=== PATIENT | male | born 1970 | race Caucasian/White ===

== ENCOUNTER 2016-11-15 15:34 | Emergency (ER) | payer OTHER ==
[~2016-11-15] VITALS: Ht 177.8 cm; Wt 64.0 kg
[2016-11-15 15:38] VITALS: TEMP 37.4; Ht 177.8 cm; Wt 64.0 kg
[2016-11-15 16:29] LABS: BASO % 0.7 %; BASO ABS # 0.07 K/uL (0-0.2); COMPLETE YES; EOS % 0.7 %; HEMATOCRIT 39.2 % (42-52); IG% 0.2 %; LYMPH ABS # 1.82 K/uL (1.2-3.4); MEAN CELL VOLUME 88.1 fL (80-100); MEAN CORPUSCULAR HEMOGLOBIN 29.9 pg (25-34); MEAN CORPUSCULAR HGB CONC 33.9 g/dl (32-36); MEAN PLATELET VOLUME 8.6 fL (7.4-10.4); MONO % 11.2 %; NEUT % 70.2 %; PLATELET COUNT 203 K/uL (130-400); RED BLOOD COUNT 4.45 M/uL (4.7-6.1); WHITE BLOOD COUNT 10.73 K/uL (4.8-10.8)
--- NOTE | 2016-11-15 16:34 | DIAGNOSTIC IMAGING REPORT ---
RIGHT ANKLE 3 VIEWS HISTORY: pain, swelling Right COMPARISON: None. FINDINGS: Small avulsion fracture at the distal tip of the right fibula. Lateral soft tissue swelling within the ankle. No radiopaque foreign bodies. IMPRESSION: Small nondisplaced avulsion fracture at the distal tip of the right fibula. Electronically signed by: Davy Tyler M.D. 11/15/2016 4:33 PM Dictated Date/Time: 11/15/2016 4:32 PM
[2016-11-15] MEDS ORDERED: CEFTRIAXONE SOD INJ 1 GM ADDVIAL IV STA (16:39)
[2016-11-15 16:44] LABS: BUN/CREATININE RATIO 10.3 (10-20); CALCIUM 8.6 mg/dl (8.5-10.1); POTASSIUM 4.2 mmol/L (3.5-5.1)
[2016-11-15] MEDS ORDERED: SULFAMETHOXAZOLE/TRIMETHOPRIM DS 800/160MG TAB PO ONE (16:45)
--- NOTE | 2016-11-15 16:52 | DIAGNOSTIC IMAGING REPORT ---
Venous Doppler right leg RIGHT VENOUS DOPP LOWER EXT UNILAT CLINICAL HISTORY: swelling, erythema Right TECHNIQUE: Is Doppler COMPARISON STUDY: None FINDINGS: Normal study IMPRESSION: Normal study Electronically signed by: Navdeep Naylor M.D. 11/15/2016 4:51 PM Dictated Date/Time: 11/15/2016 4:50 PM
[2016-11-15] MEDS ORDERED: CEPH500C PO (17:46)
[2016-11-15] MEDS ORDERED: SULF800T23 PO (17:46)
--- NOTE | 2016-11-15 17:46 | EMERGENCY ROOM VISIT NOTE ---
History Report prepared by Liv: Maritza Kam Under the Supervision of: Dr. Lupe Mejia D.O. First contact with patient: 15:53 Chief Complaint: ANKLE PAIN Stated Complaint: SWELLING TO RIGHT ANKLE-WC History of Present Illness The patient is a 46 year old male who presents to the Emergency Room with complaints of persistent right ankle pain starting yesterday. He describes his pain as throbbing. He reports redness and swelling. This morning he was unable to ambulate because of the pain. He denies any nausea or abdominal pain. He denies any trauma or injury. He believes he might have an infection. The patient works with chemicals and often gets skin irritation. Several years ago, he had some similar redness and swelling which cleared up after antibiotics. He notes that he popped a pimple on his ankle several days ago which might have gone into his skin. He denies any history of MRSA or diabetes. He denies any history of kidney problems. He admits to smoking. Source of History: patient Onset: yesterday Position: ankle (right) Quality: other (throbbing) Timing: other (persistent) Associated Symptoms: No nausea, No abdominal pain Note: Pt reports right ankle redness and swelling. Review of Systems See HPI for pertinent positives & negatives. A total of 10 systems reviewed and were otherwise negative. Past Medical & Surgical Medical Problems: (1) Cellulitis of ankle (2) No Known Active Medical Problems Family History No pertinent family history stated. Social History Smoking Status: Current Every Day Smoker Marital Status: single Occupation Status: employed Current/Historical Medications Scheduled Cephalexin Monohydrate (Keflex), 500 MG PO QID Sulfa/Trimethoprim (Bactrim Ds 800MG/160MG), 1 TAB PO BID Allergies Coded Allergies: No Known Allergies (Unverified , 11/15/16) Physical Exam Vital Signs Date Time Temp Pulse Resp B/P (MAP) Pulse Ox O2 Delivery O2 Flow Rate FiO2 11/15/16 18:00 74 16 98/61 100 Room Air 11/15/16 17:01 83 16 94/63 100 Room Air 11/15/16 15:38 37.4 82 16 110/75 95 Physical Exam GENERAL: alert, well appearing, well nourished, no distress, non-toxic EYE EXAM: normal conjunctiva, PERRL and EOM's grossly intact OROPHARYNX: poor dentition, no exudate, no erythema, lips, buccal mucosa, and tongue normal and mucous membranes are moist NECK: supple, no nuchal rigidity, no adenopathy, non-tender LUNGS: Clear to auscultation. Normal chest wall mechanics HEART: no murmurs, S1 normal and S2 normal ABDOMEN: abdomen soft, non-tender, normo-active bowel sounds, no masses, no rebound or guarding. BACK: Back is symmetrical on inspection and there is no deformity, no midline tenderness, no CVA tenderness. SKIN: no rashes and no bruising UPPER EXTREMITIES: upper extremities are grossly normal. LOWER EXTREMITIES: 2+ right lower extremity edema, erythema to the ankle, dorsum of right foot, and ascending proximally, multiple areas of excoriation around the ankle, no ecchymosis, no crepitus, no ulcer, no drainage, no vesicle. NEURO EXAM: Normal sensorium, cranial nerves II-XII grossly intact, normal speech, no gross weakness of arms, no gross weakness of legs. Medical Decision & Procedures ER Provider Diagnostic Interpretation: Xray results have been interpreted by the radiologist and me. Radiology results have been interpreted by the radiologist and reviewed by me. RIGHT ANKLE 3 VIEWS HISTORY: pain, swelling Right COMPARISON: None. FINDINGS: Small avulsion fracture at the distal tip of the right fibula. Lateral soft tissue swelling within the ankle. No radiopaque foreign bodies. IMPRESSION: Small nondisplaced avulsion fracture at the distal tip of the right fibula. Electronically signed by: Davy Tyler M.D. 11/15/2016 4:33 PM Dictated Date/Time: 11/15/2016 4:32 PM Venous Doppler right leg RIGHT VENOUS DOPP LOWER EXT UNILAT CLINICAL HISTORY: swelling, erythema Right TECHNIQUE: Is Doppler COMPARISON STUDY: None FINDINGS: Normal study IMPRESSION: Normal study Electronically signed by: Navdeep Naylor M.D. 11/15/2016 4:51 PM Dictated Date/Time: 11/15/2016 4:50 PM Laboratory Results 11/15/16 16:20 Red Blood Count 4.45, Mean Corpuscular Volume 88.1, Mean Corpuscular Hemoglobin 29.9, Mean Corpuscular Hemoglobin Concent 33.9, Mean Platelet Volume 8.6, Neutrophils (%) (Auto) 70.2, Lymphocytes (%) (Auto) 17.0, Monocytes (%) (Auto) 11.2, Eosinophils (%) (Auto) 0.7, Basophils (%) (Auto) 0.7, Neutrophils # (Auto ) 7.55, Lymphocytes # (Auto) 1.82, Monocytes # (Auto) 1.20, Eosinophils # (Auto ) 0.07, Basophils # (Auto) 0.07 11/15/16 16:20 Test 11/15/16 16:20 White Blood Count 10.73 K/uL (4.8-10.8) Red Blood Count 4.45 M/uL (4.7-6.1) Hemoglobin 13.3 g/dL (14.0-18.0) Hematocrit 39.2 % (42-52) Mean Corpuscular Volume 88.1 fL (80-100) Mean Corpuscular Hemoglobin 29.9 pg (25-34) Mean Corpuscular Hemoglobin Concent 33.9 g/dl (32-36) Platelet Count 203 K/uL (130-400) Mean Platelet Volume 8.6 fL (7.4-10.4) Neutrophils (%) (Auto) 70.2 % Lymphocytes (%) (Auto) 17.0 % Monocytes (%) (Auto) 11.2 % Eosinophils (%) (Auto) 0.7 % Basophils (%) (Auto) 0.7 % Neutrophils # (Auto) 7.55 K/uL (1.4-6.5) Lymphocytes # (Auto) 1.82 K/uL (1.2-3.4) Monocytes # (Auto) 1.20 K/uL (0.11-0.59) Eosinophils # (Auto) 0.07 K/uL (0-0.5) Basophils # (Auto) 0.07 K/uL (0-0.2) RDW Standard Deviation 39.9 fL (36.4-46.3) RDW Coefficient of Variation 12.3 % (11.5-14.5) Immature Granulocyte % (Auto) 0.2 % Immature Granulocyte # (Auto) 0.02 K/uL (0.00-0.02) Anion Gap 5.0 mmol/L (3-11) Est Creatinine Clear Calc Drug Dose 82.7 ml/min Estimated GFR () 103.4 Estimated GFR (Non- 89.2 BUN/Creatinine Ratio 10.3 (10-20) Calcium Level 8.6 mg/dl (8.5-10.1) Laboratory results per my review. Medications Administered Medications (Trade) Dose Ordered Sig/Selam Route Start Time Stop Time Status Last Admin Dose Admin Ceftriaxone Sodium (Rocephin Inj) 1 gm NOW STAT IV 11/15/16 16:39 11/15/16 16:41 DC 11/15/16 17:09 1 GM Trimethoprim/ Sulfamethoxazole (Septra Ds 800/ 160MG Tab) 1 tab NOW ONCE PO 11/15/16 16:45 11/15/16 16:46 DC 11/15/16 17:09 1 TAB ED Course 1555: The patient was evaluated in room C11B. A complete history and physical exam was performed. 1639: Rocephin Inj 1 gm IV. 1645: Trimethoprim/Sulfamethoxazole 1 tab PO. 1741: Upon reevaluation, the patient does not have any increased pain. I discussed the findings and the treatment plan with the patient. He verbalizes agreement and understanding. He was discharged home. Medical Decision Differential diagnosis: Etiologies such as cellulitis, abscess, septic arthritis, osteomyelitis, MRSA infection, DVT, necrotizing fasciitis, dermatitis, drug eruption, as well as others were entertained. Medication Reconciliation: I attest that I have personally reviewed the patient' s current medication list. Blood pressure screening: Patient was found to have normal blood pressure on screening and does not require follow-up. Patient well-appearing here despite complaints, labs reassuring, and imaging otherwise negative. Likely patient's stress can lead to excoriation which led to evolution of skin infection and cellulitis. No evidence of DVT. Patient with normal range of motion, doubt septic arthritis or osteomyelitis. Patient started on antibiotics here, discussed need for close follow-up, discussed symptoms to watch and return for, discussed use of antibiotics at home, he verbalized understanding was agreeable with plan. Impression Primary Impression: Cellulitis Scribe Attestation The scribe's documentation has been prepared under my direction and personally reviewed by me in its entirety. I confirm that the note above accurately reflects all work, treatment, procedures, and medical decision making performed by me. Departure Information Dispostion Home / Self-Care Prescriptions Sulfa/Trimethoprim (Bactrim Ds 800MG/160MG) Tab 1 TAB PO BID, #14 TAB Prov: Pheasant Lupe Inder, DO 11/15/16 Cephalexin Monohydrate (Keflex) 500 Mg Cap 500 MG PO QID, #28 CAP Prov: Lupe MejiaSteffi, DO 11/15/16 Referrals No Doctor, Assigned (PCP) Patient Instructions My [facility] Additional Instructions Please call and follow up with your family doctor to have your ankle rechecked. Please try to elevate it when at rest. Please avoid any prolonged standing or strenuous activity until it is healing and feeling better. Please use the antibiotics as prescribed. Please make sure you're drinking plenty of water area if you have any increased pain or swelling, have increasing redness or redness spreading further up the leg, develop fevers or chills, nausea or vomiting, or any other new concerns, please return the emergency room. Problem Qualifiers Primary Impression: Cellulitis Site of cellulitis: extremity Site of cellulitis of extremity: lower extremity Laterality: right Qualified Codes: L03.115 - Cellulitis of right lower limb
[2016-11-15 18:00] VITALS: BP 98/61; PULSE 74; O2SAT 100
== END 2016-11-15 18:03 | disposition home or self-care (01) ==
LOC: C.EDB 15:37 → C.EDC 18:03
DX: L03.115 Cellulitis of right lower limb (principal); S82.831A Other fracture of upper and lower end of right fibula, initial encounter for closed fracture; X58.XXXA Exposure to other specified factors, initial encounter; F17.210 Nicotine dependence, cigarettes, uncomplicated